=== PATIENT | female | born 1985 | race Caucasian/White ===

== ENCOUNTER → 2017-04-11 | Outpatient (CLI) | payer MEDICAID ==
[~2017-04-11] MED LIST: BACTRIM DS 8001 TA1 PO; CITALOPRAM HYDR20 MG PO; NOMEDS *; ZOFRAN4 MG PO
--- NOTE | 2017-04-12 10:12 | RADIOLOGY REPORT PS360 ---
US BREAST-RT COMPLETE W/AXILLA COMPARISON: None INDICATION: Evaluate right breast ORDERING PHYSICIAN: Christopher Cruz MD PATIENT AGE: 31 years TECHNIQUE: Standard images FINDINGS: No malignant appearing mass or dominant cyst. Small nodes are present in the axilla IMPRESSION: Negative right breast ultrasound BI-RADS CATEGORY: 2_Benign RECOMMENDED FOLLOWUP: As clinically warranted. Any palpable nodule should be managed on a clinical basis. Negative ultrasound does not exclude the possibility of malignancy (A letter has been sent to the patient regarding results of the study.)
--- NOTE | 2017-04-12 10:15 | RADIOLOGY REPORT PS360 ---
US BREAST-LT COMPLETE W/AXILLA COMPARISON: None INDICATION: Palpable area in the left axilla with pain ORDERING PHYSICIAN: Christopher Cruz MD PATIENT AGE: 31 years TECHNIQUE: Standard ultrasound FINDINGS: There is a small lymph node corresponding to the patient's palpable area in the left axilla. This node measures 1.4 x 0.6 cm with some minimal thickening of the cortex of the node. No suspicious breast mass. There is a 6 mm cyst at 4:00 and a 4 mm cyst at 11:00 with some mild ductal ectasia in the retroareolar region and a 5 mm cyst in the retroareolar area. IMPRESSION: Benign findings, no evidence of malignancy BI-RADS CATEGORY: 2_Benign RECOMMENDED FOLLOWUP: Recommend clinical correlation as to the small axillary lymph nodes. 3 month follow-up may be of further value to confirm stability or resolution. (A letter has been sent to the patient regarding results of the study.)
--- NOTE | 2017-04-15 08:30 | RADIOLOGY REPORT PS360 ---
DIG MAMM-SCREEN RAHEEL W/CAD ORDERING PHYSICIAN : Christopher Cruz MD PATIENT AGE: 31 years GENDER: Female COMPARISON: Baseline mammogram. No previous studies. Palpable area left axilla. HISTORY:Baseline screening mammogram 31-year-old. Family history. Patient mother with breast cancer. & Maternal grandmother TECHNIQUE: Std CC & MLO images were obtained. Additional axillary cc views bilateral included R2 CAD reviewed. Bilateral FINDINGS: Moderately Dense breast bilaterally decreased sensitivity mammography but I we see no dominant mass nor suspicious calcifications . Small benign calcification central right breast not of concern. Mild asymmetry appears to be most likely merely glandular asymmetry. Subsequent ultrasound be performed. (A subsequent bilateral breast ultrasound was dictated by Dr. Muir identified no additional findings) IMPRESSION: Dense breasts decreased sensitivity of mammography, but no dominant mass nor suspicious calcifications.. Subsequent ultrasound was negative as reported by Dr. Muir No areas of significant concern on this baseline mammogram. Routine follow-up suggested. BI-RADS CATEGORY: 2_Benign RECOMMENDED FOLLOWUP: 12M 12 MONTH FOLLOW-UP (A letter has been sent to the patient regarding results of the study.)
== END ==
LOC: RAD 09:46
DX: Z12.31 Encounter for screening mammogram for malignant neoplasm of breast (principal); Z80.3 Family history of malignant neoplasm of breast
CPT/HCPCS: G0202